=== PATIENT | female | born 1985 | race Caucasian/White ===

== ENCOUNTER 2020-03-27 12:12 | Emergency (ER) | payer OTHER ==
[2020-03-27 12:30] VITALS: O2SAT 98
[2020-03-27 12:35] LABS: Appearance SLIGHTLY CLOUDY (CLEAR); Bacteria FEW /HPF (NEGATIVE); Bilirubin NEGATIVE (NEGATIVE); Blood MODERATE Ery/ul (0-5); Epithelial Cells RARE /HPF (FEW); Glucose NEGATIVE (NEGATIVE); Ketones NEGATIVE (NEGATIVE); Leukocyte Esterase TRACE (NEGATIVE); Mucus SLIGHT /HPF (NEGATIVE); Nitrite NEGATIVE (NEGATIVE); Protein,Urine Dip 100 (Negative); Specific Gravity 1.026 (1.005-1.025); Urobilinogen NEGATIVE mg/dL (0-1)
--- NOTE | 2020-03-27 12:45 | ERPHSYRPT ---
- History of Present Illness Time Seen by Provider: 03/27/20 12:24 Historian: patient Exam Limitations: no limitations Patient Subjective Stated Complaint: pt here for anxiety , she states she has had panic attacks for the last 2 days, and that her b/p has been high. Triage Nursing Assessment: pt alert, anxious, walked in , resp easy, skin w/d/p, Physician History: Patient is a 34-year-old female presents to our ED with complaints of high blood pressure and panic attack. Patient states she has been feeling very anxious over the past 3 days. Patient very concerned regarding her blood pressure. Patient states she has been hearing her blood pressure in her ears. She checked her blood pressure yesterday and it was normal. Patient blood pressure was observed to be 180s at home. Patient became even more panicked and decided to come to the ED for an evaluation. No active chest pain. No shortness of breath. No nausea or vomiting. No diarrhea. No diaphoresis. No fever. No sore throat. Patient states she only feels anxious. Timing/Duration: day(s) Activities at Onset: none Location: other Chest Pain Radiation: no radiation Severity of Pain-Max: none Severity of Pain-Current: none Modifying Factors: Improves With: nothing Associated Symptoms: denies symptoms, No nausea, No vomiting, No palpitations, No abdominal pain, No shortness of breath, No cough, No hurts to breathe, No diaphoresis, No weakness, No syncope, No headache, No dizziness Prior Chest Pain/Cardiac Workup: no prior cardiac workup Aspirin Treatment Today: no aspirin today Allergies/Adverse Reactions: penicillin G Allergy (Intermediate, Verified 03/27/20 12:30) Home Medications: Methadone HCl 10 mg DAILY 03/27/20 [History] Hx Tetanus, Diphtheria Vaccination/Date Given: No Hx Influenza Vaccination/Date Given: No Hx Pneumococcal Vaccination/Date Given: No Immunizations Up to Date: Yes Travel Risk - International Travel Have you traveled outside of the country in past 3 weeks: No Have you or anyone close to you been diagnosed with or: No Do your reside in a community with a known COVID-19 case?: Yes If Yes where:: [place] - Coronavirus Screening Has patient experienced Coronavirus symptoms: No - Review of Systems Constitutional: No Symptoms, No Fever, No Chills Eyes: No Symptoms Ears, Nose, & Throat: No Symptoms Respiratory: No Symptoms, No Cough, No Dyspnea Cardiac: No Symptoms, No Chest Pain, No Edema, No Syncope Abdominal/Gastrointestinal: No Symptoms, No Abdominal Pain, No Nausea, No Vomiting, No Diarrhea Genitourinary Symptoms: No Symptoms, No Dysuria Musculoskeletal: No Symptoms, No Back Pain, No Neck Pain Skin: No Symptoms, No Rash Neurological: No Symptoms, No Dizziness, No Focal Weakness, No Sensory Changes Psychological: No Symptoms Endocrine: No Symptoms Hematologic/Lymphatic: No Symptoms Immunological/Allergic: No Symptoms All Other Systems: Reviewed and Negative - Past Medical History Pertinent Past Medical History: Yes Psycho-Social History: Anxiety, Panic Disorder - Past Surgical History Past Surgical History: No - Social History Smoking Status: Current every day smoker How long have you smoked: YRS Exposure to second hand smoke: No Drug Use: none Patient Lives Alone: No - Female History Hx Last Menstrual Period: now Hx Now: No - Nursing Vital Signs Nursing Vital Signs: Initial Vital Signs Temperature 97.9 F 03/27/20 12:24 Pulse Rate 119 H 03/27/20 12:24 Blood Pressure 189/108 03/27/20 12:24 O2 Sat by Pulse Oximetry 98 03/27/20 12:24 Pain Scale Pain Intensity 0 - Physical Exam General Appearance: no apparent distress, alert, other (Patient sitting up in bed. She appears anxious.) Eye Exam: PERRL/EOMI, eyes nml inspection Ears, Nose, Throat Exam: normal ENT inspection, moist mucous membranes Neck Exam: normal inspection, non-tender, supple, full range of motion Respiratory Exam: normal breath sounds, lungs clear, No respiratory distress Cardiovascular Exam: regular rate/rhythm, normal heart sounds Gastrointestinal/Abdomen Exam: soft, No tenderness, No mass Back Exam: normal inspection, No CVA tenderness, No vertebral tenderness Extremity Exam: normal inspection, normal range of motion Neurologic Exam: alert, oriented x 3, cooperative, normal mood/affect, sensation nml, No motor deficits Skin Exam: normal color, warm, dry SpO2 Interpretation: normal SpO2: 98 O2 Delivery: Room Air - Course Nursing assessment & vital signs reviewed: Yes Ordered Tests: Active Orders 24 hr Category Date Time Status Clean Catch Urine Specimen STAT Care 03/27/20 12:20 Active CULTURE,URINE Stat Lab 03/27/20 12:21 Received UA W/RFX UR CULTURE Stat Lab 03/27/20 12:21 Completed Urine Triage Profile Stat Lab 03/27/20 12:21 Ordered Lab/Rad Data: Laboratory Results 03/27/20 Range/Units 12:21 Urine Color YARIEL (YELLOW) Urine Appearance SLIGHTLY CLOUDY (CLEAR) Urine pH 6.0 (5-6) Ur Specific [place] 1.026 (1.005-1.025) Urine Protein 100 (Negative) Urine Ketones NEGATIVE (NEGATIVE) Urine Blood MODERATE (0-5) Jamir/ul Urine Nitrite NEGATIVE (NEGATIVE) Urine Bilirubin NEGATIVE (NEGATIVE) Urine Urobilinogen NEGATIVE (0-1) mg/dL Ur Leukocyte Esterase TRACE (NEGATIVE) Urine WBC (Auto) 6-10 (0-5) /HPF Urine RBC (Auto) 16-25 (0-2) /HPF U Hyaline Cast (Auto) 6-10 (0-2) /LPF U Epithel Cells (Auto) RARE (FEW) /HPF Urine Bacteria (Auto) FEW (NEGATIVE) /HPF Urine Mucus (Auto) SLIGHT (NEGATIVE) /HPF Urine Culture Reflexed YES (NO) Urine Glucose NEGATIVE (NEGATIVE) mg/dL - Progress Progress: improved Air Movement: good Progress Note: 03/27/20 12:40 Patient reassessed. She is well. Patient presented to our ED because her blood pressure was elevated. Upon reexamination her blood pressure is normalizing. Patient is asymptomatic. Patient states she does not want a work- up because her significant other is in the waiting area. Patient believes that she simply had a panic attack. She is known to have panic attacks and states that her symptoms today was very similar to her usual panic attacks. Patient does not have a primary care doctor currently in requesting referral to a primary physician. Referral information was provided to patient. Patient blood pressure still somewhat elevated. However it is coming down. Patient's heart rate is mildly tachycardic in the 1 teens. Patient advised that because of these abnormalities work-up was indicated. Patient states she feels well and prefers to leave. She will follow-up with her primary care physician. She does not want her significant other waiting for her. Patient is alert and oriented x4. She is appropriate to make independent and informed medical decisions. Patient understands her risks of not undergoing a work-up. Risks include delayed diagnosis, increased risk morbidity, mortality, short and long- term disability, including . Patient understands and accepts the risks. AMA form completed. 03/27/20 12:52 Patient understand that she can return to our ED at any point for further evaluation and treatment of symptomology. Moderate blood on UA. However patient is currently on her menstrual period. Patient provided primary care referral information. 03/27/20 12:54 03/27/20 12:55 Blood Culture(s) Obtained: No Antibiotics given: No Counseled pt/family regarding: lab results, diagnosis, need for follow-up - Departure Departure Disposition: Home, AMA, Extended Care Facility Clinical Impression: Anxiety, High blood pressure, Tachycardia, Marijuana smoker Condition: Stable Critical Care Time: No Referrals: DOCTOR,NO FAMILY [Primary Care Provider] - LETICIA ADHIKARI MD [ACTIVE STAFF] - Additional Instructions: Discharge/Care Plan ROMULO OLVERA was seen on 03/27/20 in the Emergency Room. The patient was counseled regarding Diagnosis,Lab results, Imaging studies, need for follow up and when to return to the Emergency Room. Prescriptions given: Discharge Note I have spoken with the patient and/or caregivers. I have explained the patient' s condition, diagnosis and treatment plan based on the information available to me at this time. I have answered the patient's and/or caregiver's questions and addressed any concerns. The patient and/or caregivers have as good understanding of the patient's diagnosis, condition and treatment plan as can be expected at this point. The vital signs have been stable. The patient's condition is stable and appropriate for discharge from the emergency department. The patient will pursue further outpatient evaluation with the primary care physician or other designated or consulting physician as outlined in the discharge instructions. The patient and/or caregivers are agreeable to this plan of care and follow-up instructions have been explained in detail. The patient and/or caregivers have received these instruction. The patient/and or caregivers are aware that any significant change in condition or worsening of symptoms should prompt an immediate return to this or the closest emergency department or call 911.
[2020-03-27 12:46] LABS: Amphetamine,Urine NEGATIVE (NEGATIVE); Barbiturate,Urine NEGATIVE (NEGATIVE); Benzodiazepine,Urine NEGATIVE (NEGATIVE); Cocaine,Urine NEGATIVE (NEGATIVE); Methadone,Urine POSITIVE (NEGATIVE); Opiate,Urine NEGATIVE (NEGATIVE); PCP,Urine NEGATIVE (NEGATIVE); THC,Urine POSITIVE (NEGATIVE)
[2020-03-27 12:47] VITALS: BP 150/97; PULSE 98
== END 2020-03-27 13:00 | disposition left against medical advice (07) ==
LOC: ED 12:12
DX: F41.9 Anxiety disorder, unspecified (principal); R03.0 Elevated blood-pressure reading, without diagnosis of hypertension; R00.0 Tachycardia, unspecified; F12.90 Cannabis use, unspecified, uncomplicated
CPT/HCPCS: 80307; 81001; 87077; 87086; 99283

== ENCOUNTER 2020-03-27 19:52 | Emergency (ER) | payer OTHER ==
[2020-03-27 20:30] LABS: Absolute Neutrophil Ct (ANC) 7.62 (1.4-6.9); BASOPHIL % 0.2 % (0.0-0.4); Basophil (Absolute #) 0.02 (0-0.4); Eosinophil % 1.5 % (0.00-5.0); Eosinophil (Absolute #) 0.17 (0-0.5); Hematocrit 39.1 % (35-47); Hemoglobin 13.3 gm/dl (12.0-16.0); Lymphocyte (Absolute #) 2.19 (1.0-4.6); Lymphocytes % 19.7 % (24.0-44.0); Mean Cell Volume 96.1 fl (78-100); Mean Corpuscular Hemoglobin 32.7 pg (26-32); Mean Platelet Volume 11.1 fl (7.5-11.0); Monocyte (Absolute #) 1.13 (0.0-1.3); Monocytes % 10.2 % (0.0-12.0); Neutrophil % 68.4 % (36.0-66.0); Platelet Count 271 K/mm3 (150-450); Red Blood Count 4.07 M/mm3 (4.1-5.4); Red Cell Distribution Width 12.1 % (11.5-14.0); White Blood Count 11.1 K/mm3 (4.0-10.5)
[2020-03-27] MEDS ORDERED: BENADRYL 50 MG/ML IV ONE (20:39)
[2020-03-27] MEDS ORDERED: BENADRYL 50 MG/ML ONE (20:44)
[2020-03-27 20:55] LABS: ALBUMIN 4.6 g/dL (3.5-5.0); ALKALINE PHOSPHATASE 78 U/L (38-126); ANION GAP 15.3 MEQ/L (5-15); BLOOD UREA NITROGEN 7 mg/dL (7-17); CHLORIDE 102 mmol/L (98-107); Calcium 10.4 mg/dL (8.4-10.2); Carbon Dioxide 26 mmol/L (22-30); Creatinine 1 0.46 mg/dL (0.52-1.04); Glucose 114 mg/dL (74-106); NT PRO BNP 443 pg/mL (0-450); Potassium 3.5 mmol/L (3.5-5.1); SGOT/AST 23 U/L (14-36); SGPT/ALT 18 U/L (0-35); SODIUM 140 mmol/L (137-145); Total Protein 8.1 g/dL (6.3-8.2)
--- NOTE | 2020-03-27 21:47 | ERPHSYRPT ---
- History of Present Illness Time Seen by Provider: 03/27/20 20:20 Patient Subjective Stated Complaint: pt states that she has been checking her blood pressure all day, pt states that she is unable to get her blood pressure to go down, pt states that she is nervous and anxious about this virus, pt states that she took ibuprofen at 1100, CBD oil and her methadone today, pt states highest blood pressure was 172/107 Triage Nursing Assessment: pt ambulated into the er, pt is axo x4, pt is nervous and anxious, pt is restless, hypertensive 191/116, second b/p 154/106, tachycardic, clear heart tones, strong pulses in all extremities, wheezing present in all lobes, active bowel sounds in all quads Physician History: Patient is a 34-year-old female presents to our ED with complaints of elevated blood pressure. Patient was in our ED for the same earlier in the day. While in our ED patient's blood pressure improved patient felt well and left AMA. Blood pressure and heart rate were not at baseline we advise a work-up and patient declined because her significant other was waiting in the waiting room. Patient is here for the same. Patient states that she checked her blood pressure at home and found it to be elevated. Patient became very concerned. Patient has a history of anxiety. Patient states elevated blood pressure worsens her anxiety which concerned likely worsens her blood pressure. Patient believes her blood pressure is too high and decided to come to our ED for further evaluation. No chest pain. No nausea or vomiting. No shortness of breath. Patient appears very anxious. Symptoms are mild in intensity. Patient voices no other complaints at this time. Timing/Duration: today Severity: moderate Modifying Factors: Improves With: other Associated Symptoms: denies symptoms, No nausea, No vomiting, No abdominal pain , No shortness of breath, No heartburn, No diaphoresis, No cough, No chills, No chest pain, No fever Allergies/Adverse Reactions: penicillin G Allergy (Intermediate, Verified 03/27/20 20:12) Home Medications: Methadone HCl 130 mg PO DAILY 03/27/20 [History] Hx Tetanus, Diphtheria Vaccination/Date Given: No Hx Influenza Vaccination/Date Given: No Hx Pneumococcal Vaccination/Date Given: No Travel Risk - International Travel Have you traveled outside of the country in past 3 weeks: No Have you or anyone close to you been diagnosed with or: No Do your reside in a community with a known COVID-19 case?: Yes If Yes where:: [facility] - Coronavirus Screening Has patient experienced Coronavirus symptoms: No - Review of Systems Constitutional: No Fever, No Chills Eyes: No Symptoms Ears, Nose, & Throat: No Symptoms Respiratory: No Symptoms, No Cough, No Dyspnea Cardiac: No Symptoms, No Chest Pain, No Edema, No Syncope Abdominal/Gastrointestinal: No Symptoms, No Abdominal Pain, No Nausea, No Vomiting, No Diarrhea Genitourinary Symptoms: No Symptoms, No Dysuria Musculoskeletal: No Symptoms, No Back Pain, No Neck Pain Skin: No Symptoms, No Rash Neurological: No Symptoms, No Dizziness, No Focal Weakness, No Sensory Changes Psychological: No Symptoms Endocrine: No Symptoms Hematologic/Lymphatic: No Symptoms All Other Systems: Reviewed and Negative - Past Medical History Pertinent Past Medical History: Yes Psycho-Social History: Anxiety, Depression, Panic Disorder - Past Surgical History Past Surgical History: Yes Musculoskeletal: Orthopedic Surgery - Social History Smoking Status: Current every day smoker How long have you smoked: YRS Exposure to second hand smoke: Yes Drug Use: none Patient Lives Alone: No - Female History Hx Now: No - Nursing Vital Signs Nursing Vital Signs: Initial Vital Signs Temperature 97.6 F 03/27/20 19:59 Pulse Rate 125 H 03/27/20 19:59 Blood Pressure 191/116 03/27/20 19:59 O2 Sat by Pulse Oximetry 98 03/27/20 19:59 Pain Scale Pain Intensity 3 - Physical Exam General Appearance: no apparent distress, alert, anxiety Eye Exam: PERRL/EOMI, eyes nml inspection Ears, Nose, Throat Exam: normal ENT inspection, TMs normal, pharynx normal, moist mucous membranes Neck Exam: normal inspection, non-tender, supple, full range of motion Respiratory Exam: normal breath sounds, lungs clear, No respiratory distress Cardiovascular Exam: regular rate/rhythm, normal heart sounds, normal peripheral pulses Gastrointestinal/Abdomen Exam: soft, normal bowel sounds, No tenderness, No mass Back Exam: normal inspection, normal range of motion, No CVA tenderness, No vertebral tenderness Extremity Exam: normal inspection, normal range of motion, pelvis stable Neurologic Exam: alert, oriented x 3, cooperative, normal mood/affect, nml cerebellar function, nml station & gait, sensation nml, No motor deficits Skin Exam: normal color, warm, dry, No rash Lymphatic Exam: No adenopathy SpO2 Interpretation: normal SpO2: 100 O2 Delivery: Room Air - Course EKG Interpreted by Me: RATE, Sinus Rhythm, NORMAL AXIS, NORMAL INTERVALS - Radiology Exams Chest X-ray Interpretation: Teleradiologist Report (X-ray reveals subtle patchy right mid to lower lung and left mid lung infiltrates. Small right pleural effusion.) Ordered Tests: Active Orders 24 hr Category Date Time Status Retail Selling Specialist STAT Care 03/27/20 20:04 Active EKG-ER Only STAT Care 03/27/20 20:04 Active IV Insertion STAT Care 03/27/20 20:04 Active Isolation, Initiate & Maintain Q4H Care 03/27/20 20:12 Active Pulse Oximetry (ED) STAT Care 03/27/20 20:04 Active CHEST 1 VIEW (PORTABLE) Stat Exams 03/27/20 20:04 Taken CBC W DIFF Stat Lab 03/27/20 20:26 Completed CMP Stat Lab 03/27/20 20:26 Completed D-DIMER QUANTITATIVE Stat Lab 03/27/20 20:26 Completed NT PRO BNP Stat Lab 03/27/20 20:26 Completed TROPONIN Q3H Lab 03/27/20 20:26 Completed TROPONIN Q3H Lab 03/27/20 21:53 Completed TROPONIN Q3H Lab 03/28/20 02:15 Ordered TROPONIN Q3H Lab 03/28/20 05:15 Ordered TROPONIN Q3H Lab 03/28/20 08:15 Ordered Medication Summary Discontinued Medications Generic Name Dose Route Start Last Admin Trade Name Freq PRN Reason Stop Dose Admin Diphenhydramine HCl 25 mg 03/27/20 20:39 03/27/20 20:45 Benadryl 50 Mg/Ml IV 03/27/20 20:40 25 mg STAT ONE Administration Diphenhydramine HCl Confirm 03/27/20 20:44 Benadryl 50 Mg/Ml Administered 03/27/20 20:45 Dose 50 mg .ROUTE .[facility] ONE Lab/Rad Data: Laboratory Result Diagrams 03/27/20 20:26 03/27/20 20:26 Laboratory Results 03/27/20 03/27/20 03/27/20 Range/Units 21:53 20:26 20:26 WBC (4.0-10.5) K/mm3 RBC (4.1-5.4) M/mm3 Hgb (12.0-16.0) gm/dl Hct (35-47) % MCV (78-100) fl MCH (26-32) pg MCHC (32-36) g/dl RDW (11.5-14.0) % Plt Count (150-450) K/mm3 MPV (7.5-11.0) fl Gran % (36.0-66.0) % Eos # (Auto) (0-0.5) Absolute Lymphs (auto) (1.0-4.6) Absolute Monos (auto) (0.0-1.3) Lymphocytes % (24.0-44.0) % Monocytes % (0.0-12.0) % Eosinophils % (0.00-5.0) % Basophils % (0.0-0.4) % Absolute Granulocytes (1.4-6.9) Basophils # (0-0.4) D-Dimer 244 (215-500) ng/mL Sodium (137-145) mmol/L Potassium (3.5-5.1) mmol/L Chloride (98-107) mmol/L Carbon Dioxide (22-30) mmol/L Anion Gap (5-15) MEQ/L BUN (7-17) mg/dL Creatinine (0.52-1.04) mg/dL Estimated GFR ML/MIN Glucose (74-106) mg/dL Calcium (8.4-10.2) mg/dL Total Bilirubin (0.2-1.3) mg/dL AST (14-36) U/L ALT (0-35) U/L Alkaline Phosphatase (38-126) U/L Troponin I < 0.012 < 0.012 (0.000-0.034) ng/mL NT-Pro-B Natriuret Pep (0-450) pg/mL Serum Total Protein (6.3-8.2) g/dL Albumin (3.5-5.0) g/dL 03/27/20 03/27/20 Range/Units 20:26 20:26 WBC 11.1 H (4.0-10.5) K/mm3 RBC 4.07 L (4.1-5.4) M/mm3 Hgb 13.3 (12.0-16.0) gm/dl Hct 39.1 (35-47) % MCV 96.1 (78-100) fl MCH 32.7 H (26-32) pg MCHC 34.0 (32-36) g/dl RDW 12.1 (11.5-14.0) % Plt Count 271 (150-450) K/mm3 MPV 11.1 H (7.5-11.0) fl Gran % 68.4 H (36.0-66.0) % Eos # (Auto) 0.17 (0-0.5) Absolute Lymphs (auto) 2.19 (1.0-4.6) Absolute Monos (auto) 1.13 (0.0-1.3) Lymphocytes % 19.7 L (24.0-44.0) % Monocytes % 10.2 (0.0-12.0) % Eosinophils % 1.5 (0.00-5.0) % Basophils % 0.2 (0.0-0.4) % Absolute Granulocytes 7.62 H (1.4-6.9) Basophils # 0.02 (0-0.4) D-Dimer (215-500) ng/mL Sodium 140 (137-145) mmol/L Potassium 3.5 (3.5-5.1) mmol/L Chloride 102 (98-107) mmol/L Carbon Dioxide 26 (22-30) mmol/L Anion Gap 15.3 H (5-15) MEQ/L BUN 7 (7-17) mg/dL Creatinine 0.46 L (0.52-1.04) mg/dL Estimated GFR > 60.0 ML/MIN Glucose 114 H (74-106) mg/dL Calcium 10.4 H (8.4-10.2) mg/dL Total Bilirubin 0.30 (0.2-1.3) mg/dL AST 23 (14-36) U/L ALT 18 (0-35) U/L Alkaline Phosphatase 78 (38-126) U/L Troponin I (0.000-0.034) ng/mL NT-Pro-B Natriuret Pep 443 (0-450) pg/mL Serum Total Protein 8.1 (6.3-8.2) g/dL Albumin 4.6 (3.5-5.0) g/dL - Progress Progress: improved Progress Note: 03/27/20 21:49 Patient reassessed. She is well. Vitals stable. Blood pressure mildly elevated. Patient will have a follow-up with her primary care doctor for recheck of her blood pressure. There is a possibility she may require antihypertensive medication. Chest x-ray shows possible pneumonia. Will treat patient with azithromycin. Troponin negative x2. Patient denies chest pain or shortness of breath. Patient will be discharged home. Counseled pt/family regarding: lab results, diagnosis, need for follow-up, rad results - Departure Departure Disposition: Home Clinical Impression: Pneumonia, Hypertension, Anxiety Condition: Stable Critical Care Time: No Referrals: DOCTOR,NO FAMILY [Primary Care Provider] - Instructions: Pneumonia, Adult (DC) Additional Instructions: Discharge/Care Plan MAYROMULO PIERRE was seen on 03/27/20 in the Emergency Room. The patient was counseled regarding Diagnosis,Lab results, Imaging studies, need for follow up and when to return to the Emergency Room. Prescriptions given: Discharge Note I have spoken with the patient and/or caregivers. I have explained the patient' s condition, diagnosis and treatment plan based on the information available to me at this time. I have answered the patient's and/or caregiver's questions and addressed any concerns. The patient and/or caregivers have as good understanding of the patient's diagnosis, condition and treatment plan as can be expected at this point. The vital signs have been stable. The patient's condition is stable and appropriate for discharge from the emergency department. The patient will pursue further outpatient evaluation with the primary care physician or other designated or consulting physician as outlined in the discharge instructions. The patient and/or caregivers are agreeable to this plan of care and follow-up instructions have been explained in detail. The patient and/or caregivers have received these instruction. The patient/and or caregivers are aware that any significant change in condition or worsening of symptoms should prompt an immediate return to this or the closest emergency department or call 911. Prescriptions: Doxycycline Hyclate 100 mg [Vibramycin 100 MG] 100 mg PO BID #14 tab
[2020-03-27 22:39] VITALS: BP 141/103; PULSE 92; O2SAT 98
--- NOTE | 2020-03-28 08:21 | XRAY ---
Indication: Chest pain and tightness. High blood pressure. Comparison: None Portable chest demonstrates subtle right mid to lower lung and lesser degree left mid lung patchy airspace opacities with tiny right effusion. Remaining heart and lungs unremarkable. Bony thorax intact with old right 5 rib fracture and very minimal scoliosis.
== END 2020-03-27 22:47 | disposition home or self-care (01) ==
LOC: ED 19:52
DX: J18.9 Pneumonia, unspecified organism (principal); I10 Essential (primary) hypertension; F41.9 Anxiety disorder, unspecified; Z72.0 Tobacco use
CPT/HCPCS: 36000; 36415; 71045; 80053; 83880; 84484; 85025; 85379; 93005; 93041; 94760; 96374; 99284; J1200

== ENCOUNTER 2020-03-31 11:42 | Emergency (ER) | payer OTHER ==
[2020-03-31 12:25] VITALS: O2SAT 98
[2020-03-31 13:04] LABS: Hematocrit 43.1 % (35-47); Hemoglobin 14.8 gm/dl (12.0-16.0); Mean Cell Volume 94.3 fl (78-100); Mean Corpuscular Hemoglobin 32.4 pg (26-32); Mean Corpuscular Hgb Concent. 34.3 g/dl (32-36); Mean Platelet Volume 10.9 fl (7.5-11.0); Platelet Count 389 K/mm3 (150-450); Red Blood Count 4.57 M/mm3 (4.1-5.4); Red Cell Distribution Width 11.7 % (11.5-14.0); White Blood Count 17.4 K/mm3 (4.0-10.5)
[2020-03-31 13:11] LABS: Appearance SLIGHTLY CLOUDY (CLEAR); Bilirubin NEGATIVE (NEGATIVE); Blood NEGATIVE Ery/ul (0-5); Glucose NEGATIVE (NEGATIVE); Ketones NEGATIVE (NEGATIVE); Leukocyte Esterase TRACE (NEGATIVE); Mucus SLIGHT /HPF (NEGATIVE); Nitrite NEGATIVE (NEGATIVE); Protein,Urine Dip 30 (Negative); Specific Gravity 1.017 (1.005-1.025); Urobilinogen NEGATIVE mg/dL (0-1); WBC 0-2 /HPF (0-5)
[2020-03-31 13:13] LABS: ALBUMIN 4.9 g/dL (3.5-5.0); ALKALINE PHOSPHATASE 78 U/L (38-126); ANION GAP 14.2 MEQ/L (5-15); BLOOD UREA NITROGEN 15 mg/dL (7-17); CHLORIDE 100 mmol/L (98-107); Calcium 10.3 mg/dL (8.4-10.2); Carbon Dioxide 28 mmol/L (22-30); Creatinine 1 0.66 mg/dL (0.52-1.04); Glucose 115 mg/dL (74-106); Potassium 3.9 mmol/L (3.5-5.1); SGOT/AST 30 U/L (14-36); SGPT/ALT 30 U/L (0-35); SODIUM 138 mmol/L (137-145); Total Protein 8.6 g/dL (6.3-8.2)
[2020-03-31 13:24] LABS: Amphetamine,Urine NEGATIVE (NEGATIVE); Barbiturate,Urine NEGATIVE (NEGATIVE); Benzodiazepine,Urine NEGATIVE (NEGATIVE); Cocaine,Urine NEGATIVE (NEGATIVE); Methadone,Urine POSITIVE (NEGATIVE); Opiate,Urine NEGATIVE (NEGATIVE); PCP,Urine NEGATIVE (NEGATIVE); THC,Urine NEGATIVE (NEGATIVE)
[2020-03-31 13:33] VITALS: BP 133/97; PULSE 110
--- NOTE | 2020-03-31 13:40 | ERPHSYRPT ---
- History of Present Illness Time Seen by Provider: 03/31/20 11:50 Source: patient Exam Limitations: no limitations Patient Subjective Stated Complaint: "Since last wednesday, it feels like when I swallow fluid is trying to go to my lungs or splash somewhere else." Triage Nursing Assessment: Pt presented alert et oriented answering questions appropriately. Pt ambulating without complications. Pt reported a feeling of a hole "or something" in her throat ongoing over the past week. Denied chest pain/ respiratory distress. Pt denied nausea/vomiting/diarrhea. Pupils 3mm reactive. Oral mucosa pink/moist. oropharynx without erryhtma/edema/drainage. Pt denied ear pain. Bilateral tympanic membranes intact without signs of effusion. Neck supple without JVD. Bronchial lung sound clear without signs of stridor. Symmetrical chest expansion. Lungs clear with adeuquate airflow throughout all lugn andino. Abdomen soft non-tender without palpable organomegaly. No noted dependent edema. Bilateral radial pulses equal. Skin p/w/d et intact. Physician History: pain with swallowing X 5 days. tx for pneumonia, sore throat. On Doxycycline no F,C,S. Feels like she is choking Timing/Duration: day(s) (5), gradual onset Activities at Onset: none Severity of Dyspnea-Max: mild Severity of Dyspnea-Current: mild Possible Cause: no prior episodes Modifying Factors: Improves With: other (swallowing) Associated Symptoms: chest pain/discomfort Allergies/Adverse Reactions: penicillin G Allergy (Intermediate, Verified 03/27/20 20:12) Home Medications: Methadone HCl 130 mg PO DAILY 03/27/20 [History] Hx Tetanus, Diphtheria Vaccination/Date Given: No Hx Influenza Vaccination/Date Given: No Hx Pneumococcal Vaccination/Date Given: No Immunizations Up to Date: Yes Travel Risk - International Travel Have you traveled outside of the country in past 3 weeks: No Have you or anyone close to you been diagnosed with or: No Do your reside in a community with a known COVID-19 case?: Yes If Yes where:: [place] - Coronavirus Screening Has patient experienced Coronavirus symptoms: No - Review of Systems Constitutional: No Fever, No Chills Eyes: No Symptoms Ears, Nose, & Throat: Throat Pain Respiratory: Cough, No Dyspnea Cardiac: No Chest Pain, No Edema, No Syncope Abdominal/Gastrointestinal: No Abdominal Pain, No Nausea, No Vomiting, No Diarrhea Genitourinary Symptoms: No Dysuria Musculoskeletal: No Back Pain, No Neck Pain Skin: No Rash Neurological: No Dizziness, No Focal Weakness, No Sensory Changes Psychological: No Symptoms Endocrine: No Symptoms All Other Systems: Reviewed and Negative - Past Medical History Pertinent Past Medical History: Yes Neurological History: No Pertinent History ENT History: No Pertinent History Cardiac History: No Pertinent History Respiratory History: No Pertinent History Endocrine Medical History: No Pertinent History Musculoskeletal History: No Pertinent History GI Medical History: No Pertinent History History: No Pertinent History Psycho-Social History: Anxiety, Depression, Panic Disorder Female Reproductive Disorders: No Pertinent History - Past Surgical History Past Surgical History: Yes Musculoskeletal: Orthopedic Surgery Other Surgical History: Foot surgery - Social History Smoking Status: Current every day smoker How long have you smoked: YRS Exposure to second hand smoke: Yes Drug Use: none Patient Lives Alone: No - Female History Hx Last Menstrual Period: 03/24/2020 Hx Now: No - Nursing Vital Signs Nursing Vital Signs: Initial Vital Signs Temperature 98 F 03/31/20 11:42 Pulse Rate 133 H 03/31/20 11:42 Respiratory Rate 03/31/20 11:42 Blood Pressure 188/91 03/31/20 11:42 O2 Sat by Pulse Oximetry 98 03/31/20 11:42 Pain Scale Pain Intensity 4 - Physical Exam General Appearance: mild distress, alert Eye Exam: PERRL/EOMI Neck Exam: normal inspection, supple Cardiovascular/Chest Exam: normal heart sounds, regular rate/rhythm Abdominal/Gastrointestinal Exam: soft, No tenderness, No distention, No mass Extremity Exam: non-tender, normal range of motion, normal inspection, no calf tenderness, no pedal edema Neurologic Exam: alert, oriented x 3, cooperative, basket grader II-XII nml as tested, sensation nml, No motor deficits Skin Exam: normal color, warm, No dry Lymphatic Exam: No adenopathy SpO2 Interpretation: normal SpO2: 98 O2 Delivery: Room Air - Course Nursing assessment & vital signs reviewed: Yes Ordered Tests: Active Orders 24 hr Category Date Time Status Clean Catch Urine Specimen STAT Care 03/31/20 12:25 Active CHEST 2 VIEWS (PA AND LAT) Stat Exams 03/31/20 12:31 Taken NECK SOFT TISSUE Stat Exams 03/31/20 12:31 Taken CBC W DIFF Stat Lab 05/10/20 12:45 Completed CMP Stat Lab 03/31/20 12:45 Completed Lactic Acid Stat Lab 03/31/20 12:24 Completed Manual Differential NC Stat Lab 03/31/20 12:45 Completed UA W/RFX UR CULTURE Stat Lab 03/31/20 12:24 Completed Urine Triage Profile Stat Lab 03/31/20 12:45 Completed Lab/Rad Data: Laboratory Result Diagrams 03/31/20 12:45 03/31/20 12:45 Laboratory Results 03/31/20 03/31/20 03/31/20 Range/Units 12:45 12:45 12:45 WBC (4.0-10.5) K/mm3 RBC (4.1-5.4) M/mm3 Hgb (12.0-16.0) gm/dl Hct (35-47) % MCV (78-100) fl MCH (26-32) pg MCHC (32-36) g/dl RDW (11.5-14.0) % Plt Count (150-450) K/mm3 MPV (7.5-11.0) fl Sodium 138 (137-145) mmol/L Potassium 3.9 (3.5-5.1) mmol/L Chloride 100 (98-107) mmol/L Carbon Dioxide 28 (22-30) mmol/L Anion Gap 14.2 (5-15) MEQ/L BUN 15 (7-17) mg/dL Creatinine 0.66 (0.52-1.04) mg/dL Estimated GFR > 60.0 ML/MIN Glucose 115 H (74-106) mg/dL Lactic Acid (0.4-2.0) Calcium 10.3 H (8.4-10.2) mg/dL Total Bilirubin 0.50 (0.2-1.3) mg/dL AST 30 (14-36) U/L ALT 30 (0-35) U/L Alkaline Phosphatase 78 (38-126) U/L Serum Total Protein 8.6 H (6.3-8.2) g/dL Albumin 4.9 (3.5-5.0) g/dL Urine Color (YELLOW) Urine Appearance (CLEAR) Urine pH (5-6) Ur Specific [place] (1.005-1.025) Urine Protein (Negative) Urine Ketones (NEGATIVE) Urine Blood (0-5) Jamir/ul Urine Nitrite (NEGATIVE) Urine Bilirubin (NEGATIVE) Urine Urobilinogen (0-1) mg/dL Ur Leukocyte Esterase (NEGATIVE) Urine WBC (Auto) (0-5) /HPF Urine RBC (Auto) (0-2) /HPF U Epithel Cells (Auto) (FEW) /HPF Urine Bacteria (Auto) (NEGATIVE) /HPF Other Casts (Auto) (NEGATIVE) /LPF Urine Mucus (Auto) (NEGATIVE) /HPF Urine Culture Reflexed (NO) Urine Glucose (NEGATIVE) mg/dL Urine Opiates Level NEGATIVE (NEGATIVE) Ur Methadone POSITIVE (NEGATIVE) Urine Barbiturates NEGATIVE (NEGATIVE) Ur Phencyclidine (PCP) NEGATIVE (NEGATIVE) Urine Amphetamine NEGATIVE (NEGATIVE) U Benzodiazepine Level NEGATIVE (NEGATIVE) Urine Cocaine NEGATIVE (NEGATIVE) Urine Marijuana (THC) NEGATIVE (NEGATIVE) Group A Strep Antibody NOT DETECTED (NEGATIVE) 03/31/20 03/31/20 03/31/20 Range/Units 12:45 12:24 12:24 WBC 17.4 H (4.0-10.5) K/mm3 RBC 4.57 (4.1-5.4) M/mm3 Hgb 14.8 (12.0-16.0) gm/dl Hct 43.1 (35-47) % MCV 94.3 (78-100) fl MCH 32.4 H (26-32) pg MCHC 34.3 (32-36) g/dl RDW 11.7 (11.5-14.0) % Plt Count 389 (150-450) K/mm3 MPV 10.9 (7.5-11.0) fl Sodium (137-145) mmol/L Potassium (3.5-5.1) mmol/L Chloride (98-107) mmol/L Carbon Dioxide (22-30) mmol/L Anion Gap (5-15) MEQ/L BUN (7-17) mg/dL Creatinine (0.52-1.04) mg/dL Estimated GFR ML/MIN Glucose (74-106) mg/dL Lactic Acid 1.3 (0.4-2.0) Calcium (8.4-10.2) mg/dL Total Bilirubin (0.2-1.3) mg/dL AST (14-36) U/L ALT (0-35) U/L Alkaline Phosphatase (38-126) U/L Serum Total Protein (6.3-8.2) g/dL Albumin (3.5-5.0) g/dL Urine Color YELLOW (YELLOW) Urine Appearance SLIGHTLY CLOUDY (CLEAR) Urine pH 7.0 (5-6) Ur Specific [place] 1.017 (1.005-1.025) Urine Protein 30 (Negative) Urine Ketones NEGATIVE (NEGATIVE) Urine Blood NEGATIVE (0-5) Jamir/ul Urine Nitrite NEGATIVE (NEGATIVE) Urine Bilirubin NEGATIVE (NEGATIVE) Urine Urobilinogen NEGATIVE (0-1) mg/dL Ur Leukocyte Esterase TRACE (NEGATIVE) Urine WBC (Auto) 0-2 (0-5) /HPF Urine RBC (Auto) 6-10 (0-2) /HPF U Epithel Cells (Auto) NONE (FEW) /HPF Urine Bacteria (Auto) NONE (NEGATIVE) /HPF Other Casts (Auto) NEGATIVE (NEGATIVE) /LPF Urine Mucus (Auto) SLIGHT (NEGATIVE) /HPF Urine Culture Reflexed NO (NO) Urine Glucose NEGATIVE (NEGATIVE) mg/dL Urine Opiates Level (NEGATIVE) Ur Methadone (NEGATIVE) Urine Barbiturates (NEGATIVE) Ur Phencyclidine (PCP) (NEGATIVE) Urine Amphetamine (NEGATIVE) U Benzodiazepine Level (NEGATIVE) Urine Cocaine (NEGATIVE) Urine Marijuana (THC) (NEGATIVE) Group A Strep Antibody (NEGATIVE) - Progress Progress: unchanged Air Movement: good Blood Culture(s) Obtained: No Antibiotics given: Yes - Departure Departure Disposition: Home Clinical Impression: Esophagitis Condition: Stable Critical Care Time: No Referrals: DOCTOR,NO FAMILY [Primary Care Provider] - Instructions: Thrush (DC), Acid Reflux and GERD in Adults (DC) Prescriptions: Azithromycin [Zithromax] 250 mg PO DAILY 5 Days #6 tablet Clotrimazole [Mycelex] 10 mg MM QID 5 Days #20 est[place]
[2020-03-31 16:32] LABS: BAND 3 % (0.0-2.0); Basophil 1 % (0.0-1.0); Lymphocytes 19 % (24-44); Monocyte 4 % (0.0-12.0); Neutrophils 73 % (36.0-66.0); Total Cells Counted 100
[2020-03-31 16:33] LABS: Platelet Estimate NORMAL (NORMAL); Toxic Granulation 2+
--- NOTE | 2020-03-31 19:18 | XRAY ---
Indication: Dysphasia. Comparison: None AP/lateral soft tissue neck demonstrates patent supra/infra glottic airway and normal epiglottis. Cervical spine intact with mild/moderate multilevel degenerative changes. Incidental poor dentition. Esophagram may yield further information if clinically warranted.
--- NOTE | 2020-03-31 19:20 | XRAY ---
Indication: Dysphasia. Comparison: March 27, 2020. Portable chest remains hyperinflated and is now clear. Heart and mediastinal structures within normal limits. No new/acute findings. Esophagram may yield further information if clinically warranted.
== END 2020-03-31 13:47 | disposition home or self-care (01) ==
LOC: ED 11:42
DX: K20.9 Esophagitis, unspecified (principal)
CPT/HCPCS: 36415; 70360; 71046; 80053; 80307; 81001; 83605; 85025; 87651; 99284

== ENCOUNTER 2020-09-20 14:21 | Emergency (ER) | payer OTHER ==
[2020-09-20] MEDS ORDERED: Sodium Chloride 0.9% 1000 ML 1,000 ML IV STA (15:18)
[2020-09-20 15:39] LABS: Appearance SLIGHTLY CLOUDY (CLEAR); Bacteria RARE /HPF (NEGATIVE); Bilirubin NEGATIVE (NEGATIVE); Blood SMALL Ery/ul (0-5); Epithelial Cells RARE /HPF (FEW); Glucose NEGATIVE (NEGATIVE); Ketones NEGATIVE (NEGATIVE); Leukocyte Esterase SMALL (NEGATIVE); Nitrite NEGATIVE (NEGATIVE); Protein,Urine Dip NEGATIVE (Negative); Specific Gravity 1.015 (1.005-1.025); Urobilinogen NEGATIVE mg/dL (0-1)
--- NOTE | 2020-09-20 15:40 | ERPHSYRPT ---
- History of Present Illness Time Seen by Provider: 09/20/20 14:50 Source: patient Exam Limitations: no limitations Patient Subjective Stated Complaint: anxiety - family members have heart issues, pt worried about her heart. no cardiac hx Triage Nursing Assessment: pt to ED c/o anxiety r/t some pain in lungs. pt states her family has cardiac hx and she worries that she also will have cardiac issues. only pmhx anxiety/depression. no cardiac hx reported. rates 5/10 pain in "lung and ribs area." heart sounds clear, lungs clear and equal bialterally. Physician History: This is a 35-year-old female who has significant anxiety issues. She states that she started having cough and congestion yesterday. She is concerned about having a heart issue and also possible Covid 19. She has no known exposures to any individual with COVID-19 positive diagnosis. Patient has no significant chest pain. She has only mild shortness of breath symptoms. She has no myalgias or arthralgias. She has no nausea vomiting or diarrhea. Patient states that she is not under any new stressors. she has no abdominal pain Timing/Duration: yesterday Cough Quality/Degree: mild, dry cough Possible Cause: no prior episodes Modifying Factors: Improves With: coughing Associated Symptoms: cough, shortness of breath (Mild), No chest pain/soreness Allergies/Adverse Reactions: penicillin G Allergy (Intermediate, Verified 09/20/20 14:50) Home Medications: Methadone HCl 130 mg PO DAILY 03/27/20 [History] Hydroxyzine HCl 25 mg [Atarax 25 mg] 25 mg PO DAILY 09/20/20 [History] Omeprazole 20 mg PO DAILY 09/20/20 [History] PARoxetine HCL [Paroxetine HCl] 40 mg PO DAILY 09/20/20 [History] Hx Tetanus, Diphtheria Vaccination/Date Given: No Hx Influenza Vaccination/Date Given: No Hx Pneumococcal Vaccination/Date Given: No Travel Risk - International Travel Have you traveled outside of the country in past 3 weeks: No - Coronavirus Screening Are you exhibiting any of the following symptoms?: Yes Symptoms: Cough: New Onset Close contact with a COVID-19 positive Pt in past 14-21 Days: No - Review of Systems Constitutional: No Symptoms Eyes: No Symptoms Ears, Nose, & Throat: No Symptoms Respiratory: Cough Cardiac: No Symptoms Abdominal/Gastrointestinal: No Symptoms Genitourinary Symptoms: No Symptoms Musculoskeletal: No Symptoms Skin: No Symptoms Neurological: No Symptoms Psychological: No Symptoms Endocrine: No Symptoms Hematologic/Lymphatic: No Symptoms Immunological/Allergic: No Symptoms All Other Systems: Reviewed and Negative - Past Medical History Pertinent Past Medical History: Yes Neurological History: No Pertinent History ENT History: No Pertinent History Cardiac History: No Pertinent History Respiratory History: No Pertinent History Endocrine Medical History: No Pertinent History Musculoskeletal History: No Pertinent History GI Medical History: No Pertinent History History: No Pertinent History Psycho-Social History: Anxiety, Depression, Panic Disorder Female Reproductive Disorders: No Pertinent History - Past Surgical History Past Surgical History: Yes Musculoskeletal: Orthopedic Surgery Other Surgical History: Foot surgery - Social History Smoking Status: Current every day smoker How long have you smoked: YRS Exposure to second hand smoke: Yes Drug Use: none Patient Lives Alone: No - Female History Hx Now: No - Nursing Vital Signs Nursing Vital Signs: Initial Vital Signs Temperature 98.1 F 09/20/20 14:35 Pulse Rate 94 H 09/20/20 14:35 Respiratory Rate 18 09/20/20 14:35 Blood Pressure 143/93 09/20/20 14:35 O2 Sat by Pulse Oximetry 97 09/20/20 14:35 Pain Scale Pain Intensity 8 - Physical Exam General Appearance: no apparent distress, alert, anxiety Eye Exam: PERRL/EOMI, eyes nml inspection Ears, Nose, Throat Exam: normal ENT inspection, moist mucous membranes Neck Exam: normal inspection, non-tender, supple, full range of motion Respiratory Exam: normal breath sounds, lungs clear, airway intact, No chest tenderness, No respiratory distress Cardiovascular Exam: regular rate/rhythm, normal heart sounds, normal peripheral pulses Gastrointestinal/Abdomen Exam: soft, normal bowel sounds, No tenderness Pelvic Exam: not done Rectal Exam: not done Back Exam: normal inspection, normal range of motion, No CVA tenderness, No vertebral tenderness Extremity Exam: normal inspection, normal range of motion, pelvis stable Neurologic Exam: alert, oriented x 3, cooperative, head of mathematics II-XII nml as tested, normal mood/affect, nml cerebellar function, nml station & gait, sensation nml Skin Exam: normal color, warm, dry Lymphatic Exam: No adenopathy SpO2 Interpretation: normal SpO2: 97 O2 Delivery: Room Air - Course Nursing assessment & vital signs reviewed: Yes Ordered Tests: Active Orders 24 hr Category Date Time Status EKG-ER Only STAT Care 09/20/20 15:16 Active Pulse Oximetry (ED) STAT Care 09/20/20 15:16 Active CHEST 1 VIEW (PORTABLE) Stat Exams 09/20/20 15:16 Completed CBC W DIFF Stat Lab 09/20/20 15:16 Completed CMP Stat Lab 09/20/20 16:00 Completed CULTURE,URINE Stat Lab 09/20/20 15:21 Received [place] Screen Stat Lab 09/20/20 16:10 Completed TROPONIN Q3H Lab 09/20/20 15:30 Completed TROPONIN Q3H Lab 09/20/20 18:30 Ordered TROPONIN Q3H Lab 09/20/20 21:30 Ordered TROPONIN Q3H Lab 09/21/20 00:30 Ordered TROPONIN Q3H Lab 09/21/20 03:30 Ordered UA W/RFX UR CULTURE Stat Lab 09/20/20 15:21 Completed Medication Summary Discontinued Medications Generic Name Dose Route Start Last Admin Trade Name Freq PRN Reason Stop Dose Admin Sodium Chloride 1,000 mls @ 999 mls/hr 09/20/20 15:18 09/20/20 15:52 Sodium Chloride 0.9% 1000 Ml IV 09/20/20 16:18 999 mls/hr .Q1H1M STA Administration Sodium Chloride Confirm 09/20/20 15:50 Sodium Chloride 0.9% 1000 Ml Administered 09/20/20 15:51 Dose 1,000 mls @ ud .ROUTE .STK-MED ONE Lab/Rad Data: Laboratory Result Diagrams 09/20/20 15:16 09/20/20 16:00 Laboratory Results 09/20/20 09/20/20 09/20/20 Range/Units Unknown 16:10 16:00 WBC (4.0-10.5) K/mm3 RBC (4.1-5.4) M/mm3 Hgb (12.0-16.0) gm/dl Hct (35-47) % MCV (78-100) fl MCH (26-32) pg MCHC (32-36) g/dl RDW (11.5-14.0) % Plt Count (150-450) K/mm3 MPV (7.5-11.0) fl Gran % (36.0-66.0) % Eos # (Auto) (0-0.5) Absolute Lymphs (auto) (1.0-4.6) Absolute Monos (auto) (0.0-1.3) Lymphocytes % (24.0-44.0) % Monocytes % (0.0-12.0) % Eosinophils % (0.00-5.0) % Basophils % (0.0-0.4) % Absolute Granulocytes (1.4-6.9) Basophils # (0-0.4) Sodium 136 L (137-145) mmol/L Potassium 3.6 (3.5-5.1) mmol/L Chloride 105 (98-107) mmol/L Carbon Dioxide 26 (22-30) mmol/L Anion Gap 8.1 (5-15) MEQ/L BUN 12 (7-17) mg/dL Creatinine 0.47 L (0.52-1.04) mg/dL Estimated GFR > 60.0 ML/MIN Glucose 87 (74-106) mg/dL Calcium 9.0 (8.4-10.2) mg/dL Total Bilirubin 0.30 (0.2-1.3) mg/dL AST 30 (14-36) U/L ALT 19 (0-35) U/L Alkaline Phosphatase 72 (38-126) U/L Troponin I (0.000-0.034) ng/mL Serum Total Protein 6.8 (6.3-8.2) g/dL Albumin 4.0 (3.5-5.0) g/dL Urine Color (YELLOW) Urine Appearance (CLEAR) Urine pH (5-6) Ur Specific [place] (1.005-1.025) Urine Protein (Negative) Urine Ketones (NEGATIVE) Urine Blood (0-5) Jamir/ul Urine Nitrite (NEGATIVE) Urine Bilirubin (NEGATIVE) Urine Urobilinogen (0-1) mg/dL Ur Leukocyte Esterase (NEGATIVE) Urine WBC (Auto) (0-5) /HPF Urine RBC (Auto) (0-2) /HPF U Epithel Cells (Auto) (FEW) /HPF Urine Bacteria (Auto) (NEGATIVE) /HPF Urine Culture Reflexed (NO) Urine Glucose (NEGATIVE) mg/dL Monoscreen NEGATIVE (Negative) Influenza Type A Ag NEGATIVE (NEGATIVE) Influenza Type B Ag NEGATIVE (NEGATIVE) RSV (PCR) NEGATIVE (Negative) Group A Strep Antibody (NEGATIVE) 09/20/20 09/20/20 09/20/20 Range/Units 15:30 15:21 15:16 WBC (4.0-10.5) K/mm3 RBC (4.1-5.4) M/mm3 Hgb (12.0-16.0) gm/dl Hct (35-47) % MCV (78-100) fl MCH (26-32) pg MCHC (32-36) g/dl RDW (11.5-14.0) % Plt Count (150-450) K/mm3 MPV (7.5-11.0) fl Gran % (36.0-66.0) % Eos # (Auto) (0-0.5) Absolute Lymphs (auto) (1.0-4.6) Absolute Monos (auto) (0.0-1.3) Lymphocytes % (24.0-44.0) % Monocytes % (0.0-12.0) % Eosinophils % (0.00-5.0) % Basophils % (0.0-0.4) % Absolute Granulocytes (1.4-6.9) Basophils # (0-0.4) Sodium (137-145) mmol/L Potassium (3.5-5.1) mmol/L Chloride (98-107) mmol/L Carbon Dioxide (22-30) mmol/L Anion Gap (5-15) MEQ/L BUN (7-17) mg/dL Creatinine (0.52-1.04) mg/dL Estimated GFR ML/MIN Glucose (74-106) mg/dL Calcium (8.4-10.2) mg/dL Total Bilirubin (0.2-1.3) mg/dL AST (14-36) U/L ALT (0-35) U/L Alkaline Phosphatase (38-126) U/L Troponin I < 0.012 (0.000-0.034) ng/mL Serum Total Protein (6.3-8.2) g/dL Albumin (3.5-5.0) g/dL Urine Color YELLOW (YELLOW) Urine Appearance SLIGHTLY CLOUDY (CLEAR) Urine pH 6.0 (5-6) Ur Specific [place] 1.015 (1.005-1.025) Urine Protein NEGATIVE (Negative) Urine Ketones NEGATIVE (NEGATIVE) Urine Blood SMALL (0-5) Jamir/ul Urine Nitrite NEGATIVE (NEGATIVE) Urine Bilirubin NEGATIVE (NEGATIVE) Urine Urobilinogen NEGATIVE (0-1) mg/dL Ur Leukocyte Esterase SMALL (NEGATIVE) Urine WBC (Auto) 3-5 (0-5) /HPF Urine RBC (Auto) 6-10 (0-2) /HPF U Epithel Cells (Auto) RARE (FEW) /HPF Urine Bacteria (Auto) RARE (NEGATIVE) /HPF Urine Culture Reflexed YES (NO) Urine Glucose NEGATIVE (NEGATIVE) mg/dL Monoscreen (Negative) Influenza Type A Ag (NEGATIVE) Influenza Type B Ag (NEGATIVE) RSV (PCR) (Negative) Group A Strep Antibody NOT DETECTED (NEGATIVE) 09/20/20 Range/Units 15:16 WBC 7.6 (4.0-10.5) K/mm3 RBC 3.45 L (4.1-5.4) M/mm3 Hgb 10.7 L (12.0-16.0) gm/dl Hct 32.5 L (35-47) % MCV 94.2 (78-100) fl MCH 31.0 (26-32) pg MCHC 32.9 (32-36) g/dl RDW 13.4 (11.5-14.0) % Plt Count 225 (150-450) K/mm3 MPV 10.9 (7.5-11.0) fl Gran % 48.7 (36.0-66.0) % Eos # (Auto) 0.08 (0-0.5) Absolute Lymphs (auto) 2.92 (1.0-4.6) Absolute Monos (auto) 0.86 (0.0-1.3) Lymphocytes % 38.3 (24.0-44.0) % Monocytes % 11.3 (0.0-12.0) % Eosinophils % 1.0 (0.00-5.0) % Basophils % 0.7 (0.0-0.4) % Absolute Granulocytes 3.71 (1.4-6.9) Basophils # 0.05 (0-0.4) Sodium (137-145) mmol/L Potassium (3.5-5.1) mmol/L Chloride (98-107) mmol/L Carbon Dioxide (22-30) mmol/L Anion Gap (5-15) MEQ/L BUN (7-17) mg/dL Creatinine (0.52-1.04) mg/dL Estimated GFR ML/MIN Glucose (74-106) mg/dL Calcium (8.4-10.2) mg/dL Total Bilirubin (0.2-1.3) mg/dL AST (14-36) U/L ALT (0-35) U/L Alkaline Phosphatase (38-126) U/L Troponin I (0.000-0.034) ng/mL Serum Total Protein (6.3-8.2) g/dL Albumin (3.5-5.0) g/dL Urine Color (YELLOW) Urine Appearance (CLEAR) Urine pH (5-6) Ur Specific [place] (1.005-1.025) Urine Protein (Negative) Urine Ketones (NEGATIVE) Urine Blood (0-5) Jamir/ul Urine Nitrite (NEGATIVE) Urine Bilirubin (NEGATIVE) Urine Urobilinogen (0-1) mg/dL Ur Leukocyte Esterase (NEGATIVE) Urine WBC (Auto) (0-5) /HPF Urine RBC (Auto) (0-2) /HPF U Epithel Cells (Auto) (FEW) /HPF Urine Bacteria (Auto) (NEGATIVE) /HPF Urine Culture Reflexed (NO) Urine Glucose (NEGATIVE) mg/dL Monoscreen (Negative) Influenza Type A Ag (NEGATIVE) Influenza Type B Ag (NEGATIVE) RSV (PCR) (Negative) Group A Strep Antibody (NEGATIVE) - Progress Progress: re-examined Air Movement: good Progress Note: 09/20/20 17:08 1 x-ray of the chest reveals a normal heart and normal lungs. The bony thorax again demonstrates old right fifth rib fracture and new nondisplaced left 5 through 9 lateral rib fractures of uncertain chronicity. 09/20/20 17:12 The nurse asked the patient whether or not she felt comfortable and safe at home. The patient answered yes. Blood Culture(s) Obtained: No Antibiotics given: No Counseled pt/family regarding: lab results, diagnosis, need for follow-up, rad results - Departure Departure Disposition: Home Clinical Impression: UTI (urinary tract infection) Condition: Stable Critical Care Time: No Referrals: TROY HERNANDEZ [Primary Care Provider] - Additional Instructions: Drink plenty of fluids. Follow-up with primary care physician for further management. Use Tylenol and ibuprofen for pain control Prescriptions: Ciprofloxacin [Cipro 500 MG] 500 mg PO BID #14 tablet
[2020-09-20] MEDS ORDERED: Sodium Chloride 0.9% 1000 ML 1,000 ML ONE (15:50)
[2020-09-20 16:08] LABS: Absolute Neutrophil Ct (ANC) 3.71 (1.4-6.9); BASOPHIL % 0.7 % (0.0-0.4); Basophil (Absolute #) 0.05 (0-0.4); Eosinophil (Absolute #) 0.08 (0-0.5); Hematocrit 32.5 % (35-47); Hemoglobin 10.7 gm/dl (12.0-16.0); Lymphocyte (Absolute #) 2.92 (1.0-4.6); Lymphocytes % 38.3 % (24.0-44.0); Mean Cell Volume 94.2 fl (78-100); Mean Corpuscular Hgb Concent. 32.9 g/dl (32-36); Mean Platelet Volume 10.9 fl (7.5-11.0); Monocyte (Absolute #) 0.86 (0.0-1.3); Monocytes % 11.3 % (0.0-12.0); Neutrophil % 48.7 % (36.0-66.0); Platelet Count 225 K/mm3 (150-450); Red Blood Count 3.45 M/mm3 (4.1-5.4); Red Cell Distribution Width 13.4 % (11.5-14.0); White Blood Count 7.6 K/mm3 (4.0-10.5)
--- NOTE | 2020-09-20 16:26 | XRAY ---
Indication: Cough and congestion. Comparison: March 31, 2020. Portable chest again demonstrates normal heart and lungs. Bony thorax again demonstrates old right 5 rib fracture with new nondisplaced left 5-9 lateral rib fractures of uncertain chronicity.
[2020-09-20 16:28] LABS: ALKALINE PHOSPHATASE 72 U/L (38-126); ANION GAP 8.1 MEQ/L (5-15); BLOOD UREA NITROGEN 12 mg/dL (7-17); CHLORIDE 105 mmol/L (98-107); Carbon Dioxide 26 mmol/L (22-30); Creatinine 1 0.47 mg/dL (0.52-1.04); EST GLOMERULAR FILTRATION RATE > 60.0 ML/MIN; Glucose 87 mg/dL (74-106); Potassium 3.6 mmol/L (3.5-5.1); SGOT/AST 30 U/L (14-36); SGPT/ALT 19 U/L (0-35); SODIUM 136 mmol/L (137-145); Total Protein 6.8 g/dL (6.3-8.2)
[2020-09-20 16:45] LABS: INFLUENZA A NEGATIVE (NEGATIVE); INFLUENZA B NEGATIVE (NEGATIVE); RESPIRATORY SYNCTIAL VIRUS NEGATIVE (Negative)
[2020-09-20 17:09] VITALS: BP 136/98; PULSE 76
[2020-09-20 17:14] VITALS: O2SAT 97
== END 2020-09-20 17:55 | disposition home or self-care (01) ==
LOC: ED 14:21
DX: N39.0 Urinary tract infection, site not specified (principal)
CPT/HCPCS: 36415; 71045; 80053; 81001; 84484; 85025; 86308; 87086; 87631; 87651; 93005; 94760; 99284; U0003

== ENCOUNTER 2021-11-09 03:23 | Emergency (ER) | payer OTHER ==
[2021-11-09] MEDS ORDERED: Zofran 4 MG/2 ML VIAL ONE (04:07)
[2021-11-09] MEDS ORDERED: TORAdol 30 mg Injection ONE (04:07)
[2021-11-09] MEDS ORDERED: Sodium Chloride 0.9% 1000 ML 1,000 ML ONE (04:07)
[2021-11-09] MEDS: TORAdol 30 mg Injection IV ONE (04:08)
[2021-11-09] MEDS: Sodium Chloride 0.9% 1000 ML 1,000 ML IV STA (04:08)
[2021-11-09] MEDS: Zofran 4 MG/2 ML VIAL IV ONE (04:08)
--- NOTE | 2021-11-09 04:16 | ERPHSYRPT ---
- History of Present Illness Time Seen by Provider: 11/09/21 03:37 Patient Subjective Stated Complaint: "My stomach hurts." Triage Nursing Assessment: The patient reported a three day onset of abdominal discomfort that she described as "my inside felt tight and then like they twisted and dropped." The patient denied any recent trauma/surgies/illnesses. She reported that she has had two periods within the last two months and that she is incontinent of urine "all the time, it just comes out." She reported diffuse abdominal pain. Denied nausea, vomiting, diarrhea, dysuria, or hematochezia. Symmetrical chest expansion. Heart tones S1/S2 RRR. Lungs vesicular with adequate movement. Abdomen flat non-distended, non-surgical, and without peritoneal signs of voluntary/involuntary guarding. Bowel sounds present in all quadrants. Physician History: 36 years old female with history of anxiety depression, drug abuse on methadone presented in the ER with 3 days history of increasing lower abdominal/hip pain after she worked out vigorously. Patient is currently on her cycle and was concerned about having blood in stool, was evaluated at [facility] yesterday, Was negative was discharged. Patient reports having soreness of abdominal wall and it feels like inside there is some care and things are falling apart. Does have off-and-on incontinence without any back pain. No loss of bowel control. Patient is very anxious and jittery, all over the place. Denies any drug use. Timing/Duration: day(s) (2), gradual onset, worse Activities at Onset: rest Quality: cramping, sharpness Abdominal Pain Onset Location: RLQ, LLQ, periumbilical, suprapubic Pain Radiation: groin Severity of Pain-Max: moderate Severity of Pain-Current: moderate Modifying Factors: Worsens With: movement, walking Associated Symptoms: nausea, vomiting, No back Allergies/Adverse Reactions: penicillin G Allergy (Intermediate, Verified 11/10/21 10:42) Home Medications: Methadone HCl 130 mg PO DAILY 03/27/20 [History] Hydroxyzine HCl 25 mg [Atarax 25 mg] 25 mg PO DAILY 09/20/20 [History] Omeprazole 20 mg PO DAILY 09/20/20 [History] PARoxetine HCL [Paroxetine HCl] 40 mg PO DAILY 09/20/20 [History] Hx Tetanus, Diphtheria Vaccination/Date Given: No Hx Influenza Vaccination/Date Given: No Hx Pneumococcal Vaccination/Date Given: No Travel Risk - International Travel Have you traveled outside of the country in past 3 weeks: No - Coronavirus Screening Are you exhibiting any of the following symptoms?: No Close contact with a COVID-19 positive Pt in past 14-21 Days: No - Vaccine Status Have you recieved a Covid-19 vaccination: Yes Casket 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: Unknown - Vaccination Dates Date of 2cond Vaccination (if applicable): 02/2021 Dates if Unknown: na - Review of Systems Constitutional: No Symptoms Eyes: No Symptoms Ears, Nose, & Throat: No Symptoms Respiratory: No Symptoms Cardiac: No Symptoms Abdominal/Gastrointestinal: Abdominal Pain, Nausea, Vomiting Genitourinary Symptoms: Frequency, Incontinence Musculoskeletal: Myalgias Skin: No Symptoms Neurological: No Symptoms Psychological: Anxiety, Depression Endocrine: No Symptoms Hematologic/Lymphatic: No Symptoms Immunological/Allergic: No Symptoms - Past Medical History Pertinent Past Medical History: Yes Neurological History: No Pertinent History ENT History: No Pertinent History Cardiac History: No Pertinent History Respiratory History: No Pertinent History Endocrine Medical History: No Pertinent History Musculoskeletal History: No Pertinent History GI Medical History: No Pertinent History History: No Pertinent History Psycho-Social History: Anxiety, Depression, Panic Disorder Female Reproductive Disorders: No Pertinent History - Past Surgical History Past Surgical History: Yes Musculoskeletal: Orthopedic Surgery Other Surgical History: Foot surgery - Social History Smoking Status: Current every day smoker How long have you smoked: YRS Exposure to second hand smoke: Yes Drug Use: none Patient Lives Alone: No - Female History Hx Last Menstrual Period: 11/09/21 Hx Now: (unkn) - Nursing Vital Signs Nursing Vital Signs: Initial Vital Signs Temperature 98.6 F 11/09/21 03:25 Pulse Rate 108 H 11/09/21 03:25 Respiratory Rate 16 11/09/21 03:25 Blood Pressure 135/96 11/09/21 03:25 O2 Sat by Pulse Oximetry 98 11/09/21 03:25 Pain Scale Pain Intensity 5 - Physical Exam General Appearance: no apparent distress, alert, anxiety Eye Exam: PERRL/EOMI, eyes nml inspection Ears, Nose, Throat Exam: normal ENT inspection, pharynx normal Neck Exam: normal inspection, non-tender, supple, full range of motion Respiratory Exam: normal breath sounds, lungs clear Cardiovascular Exam: regular rate/rhythm, tachycardia Gastrointestinal/Abdomen Exam: soft, normal bowel sounds, tenderness (Lower abdomen with some guarding without rebound tenderness.) Pelvic Exam: normal external exam, No adnexal tenderness, No cervical motion tenderness, No uterine tenderness, No vaginal discharge Rectal Exam: normal exam, normal rectal tone, other (Normal perianal sensation.) Back Exam: normal inspection, normal range of motion, No CVA tenderness, No vertebral tenderness Extremity Exam: normal inspection, normal range of motion, pelvis stable Neurologic Exam: alert, oriented x 3, cooperative, 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 tested, nml cerebellar function, nml station & gait, sensation nml, other (Tremors), No norm al mood/affect, No motor deficits Skin Exam: normal color SpO2 Interpretation: normal SpO2: 98 O2 Delivery: Room Air Ordered Tests: Medication Summary Discontinued Medications Generic Name Dose Route Start Last Admin Trade Name Freq PRN Reason Stop Dose Admin Sodium Chloride 1,000 mls @ 999 mls/hr 11/09/21 04:04 11/09/21 06:03 Sodium Chloride 0.9% 1000 Ml IV 11/09/21 05:04 Infused .Q1H1M STA Infusion Sodium Chloride Confirm 11/09/21 04:07 Sodium Chloride 0.9% 1000 Ml Administered 11/09/21 04:08 Dose 1,000 mls @ ud .ROUTE .STK-MED ONE Ketorolac Tromethamine 30 mg 11/09/21 04:04 11/09/21 04:08 Ketorolac Tromethamine 30 Mg/Ml Inj IV 11/09/21 04:05 30 mg STAT ONE Administration Ketorolac Tromethamine Confirm 11/09/21 04:07 Ketorolac Tromethamine 30 Mg/Ml Inj Administered 11/09/21 04:08 Dose 30 mg .ROUTE .STK-MED ONE Ondansetron HCl 4 mg 11/09/21 04:04 11/09/21 04:08 Ondansetron Hcl 4 Mg/2 Ml Vial IV 11/09/21 04:05 4 mg STAT ONE Administration Ondansetron HCl Confirm 11/09/21 04:07 Ondansetron Hcl 4 Mg/2 Ml Vial Administered 11/09/21 04:08 Dose 4 mg .ROUTE .STK-MED ONE Lab/Rad Data: Laboratory Result Diagrams 11/09/21 04:24 11/09/21 04:24 Laboratory Results 11/09/21 11/09/21 11/09/21 Range/Units 04:25 04:24 04:24 WBC (4.0-10.5) K/mm3 RBC (4.1-5.4) M/mm3 Hgb (12.0-16.0) gm/dl Hct (35-47) % MCV (78-100) fl MCH (26-32) pg MCHC (32-36) g/dl RDW (11.5-14.0) % Plt Count (150-450) K/mm3 MPV (7.5-11.0) fl Gran % (36.0-66.0) % Eos # (Auto) (0-0.5) Absolute Lymphs (auto) (1.0-4.6) Absolute Monos (auto) (0.0-1.3) Lymphocytes % (24.0-44.0) % Monocytes % (0.0-12.0) % Eosinophils % (0.00-5.0) % Basophils % (0.0-0.4) % Absolute Granulocytes (1.4-6.9) Basophils # (0-0.4) Sodium (137-145) mmol/L Potassium (3.5-5.1) mmol/L Chloride (98-107) mmol/L Carbon Dioxide (22-30) mmol/L Anion Gap (5-15) MEQ/L BUN (7-17) mg/dL Creatinine (0.52-1.04) mg/dL Estimated GFR ML/MIN Glucose (74-106) mg/dL Lactic Acid 0.8 (0.4-2.0) Calcium (8.4-10.2) mg/dL Total Bilirubin (0.2-1.3) mg/dL AST (14-36) U/L ALT (0-35) U/L Alkaline Phosphatase (38-126) U/L Serum Total Protein (6.3-8.2) g/dL Albumin (3.5-5.0) g/dL Lipase (23-300) U/L Urine Color (YELLOW) Urine Appearance (CLEAR) Urine pH (5-6) Ur Specific [place] (1.005-1.025) Urine Protein (Negative) Urine Ketones (NEGATIVE) Urine Blood (0-5) Jamir/ul Urine Nitrite (NEGATIVE) Urine Bilirubin (NEGATIVE) Urine Urobilinogen (0-1) mg/dL Ur Leukocyte Esterase (NEGATIVE) Urine WBC (Auto) (0-5) /HPF Urine RBC (Auto) (0-2) /HPF U Epithel Cells (Auto) (FEW) /HPF Urine Bacteria (Auto) (NEGATIVE) /HPF Urine Mucus (Auto) (NEGATIVE) /HPF Urine Culture Reflexed (NO) Urine Glucose (NEGATIVE) mg/dL Urine HCG, Qual NEGATIVE (Negative) Urine Opiates Level NEGATIVE (NEGATIVE) Ur Methadone POSITIVE (NEGATIVE) Urine Barbiturates NEGATIVE (NEGATIVE) Ur Phencyclidine (PCP) NEGATIVE (NEGATIVE) Urine Amphetamine NEGATIVE (NEGATIVE) U Benzodiazepine Level NEGATIVE (NEGATIVE) Urine Cocaine NEGATIVE (NEGATIVE) Urine Marijuana (THC) NEGATIVE (NEGATIVE) 11/09/21 11/09/21 11/09/21 Range/Units 04:24 04:24 04:24 WBC 8.0 (4.0-10.5) K/mm3 RBC 4.05 L (4.1-5.4) M/mm3 Hgb 12.6 (12.0-16.0) gm/dl Hct 38.1 (35-47) % MCV 94.1 (78-100) fl MCH 31.1 (26-32) pg MCHC 33.1 (32-36) g/dl RDW 12.7 (11.5-14.0) % Plt Count 247 (150-450) K/mm3 MPV 10.3 (7.5-11.0) fl Gran % 74.0 H (36.0-66.0) % Eos # (Auto) 0 (0-0.5) Absolute Lymphs (auto) 1.44 (1.0-4.6) Absolute Monos (auto) 0.60 (0.0-1.3) Lymphocytes % 18.0 L (24.0-44.0) % Monocytes % 7.5 (0.0-12.0) % Eosinophils % 0.0 (0.00-5.0) % Basophils % 0.5 (0.0-0.4) % Absolute Granulocytes 5.90 (1.4-6.9) Basophils # 0.04 (0-0.4) Sodium 133 L (137-145) mmol/L Potassium 4.0 (3.5-5.1) mmol/L Chloride 101 (98-107) mmol/L Carbon Dioxide 24 (22-30) mmol/L Anion Gap 12.5 (5-15) MEQ/L BUN 16 (7-17) mg/dL Creatinine 0.61 (0.52-1.04) mg/dL Estimated GFR > 60.0 ML/MIN Glucose 106 (74-106) mg/dL Lactic Acid (0.4-2.0) Calcium 9.4 (8.4-10.2) mg/dL Total Bilirubin 0.60 (0.2-1.3) mg/dL AST 28 (14-36) U/L ALT 27 (0-35) U/L Alkaline Phosphatase 47 (38-126) U/L Serum Total Protein 7.3 (6.3-8.2) g/dL Albumin 4.5 (3.5-5.0) g/dL Lipase 140 (23-300) U/L Urine Color YELLOW (YELLOW) Urine Appearance SLIGHTLY CLOUDY (CLEAR) Urine pH 6.0 (5-6) Ur Specific [place] 1.019 (1.005-1.025) Urine Protein 100 (Negative) Urine Ketones TRACE (NEGATIVE) Urine Blood LARGE (0-5) Jamir/ul Urine Nitrite NEGATIVE (NEGATIVE) Urine Bilirubin NEGATIVE (NEGATIVE) Urine Urobilinogen NEGATIVE (0-1) mg/dL Ur Leukocyte Esterase TRACE (NEGATIVE) Urine WBC (Auto) 3-5 (0-5) /HPF Urine RBC (Auto) 11-15 (0-2) /HPF U Epithel Cells (Auto) NONE (FEW) /HPF Urine Bacteria (Auto) FEW (NEGATIVE) /HPF Urine Mucus (Auto) SLIGHT (NEGATIVE) /HPF Urine Culture Reflexed YES (NO) Urine Glucose NEGATIVE (NEGATIVE) mg/dL Urine HCG, Qual (Negative) Urine Opiates Level (NEGATIVE) Ur Methadone (NEGATIVE) Urine Barbiturates (NEGATIVE) Ur Phencyclidine (PCP) (NEGATIVE) Urine Amphetamine (NEGATIVE) U Benzodiazepine Level (NEGATIVE) Urine Cocaine (NEGATIVE) Urine Marijuana (THC) (NEGATIVE) - Progress Progress: improved, re-examined Progress Note: 11/09/21 06:36 She is given fluids and Toradol, on reevaluation feeling better. Grossly unremarkable lab work. CT showed right-sided adnexal cyst. 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 Also CT showed some element of constipation and recommended MiraLAX. Because of exertional/diagnosis workout she probably might have some element of abdominal wall strain. Discussed signs symptoms of worsening needing return to ER which he seems understanding. Counseled pt/family regarding: lab results, diagnosis, need for follow-up, rad results, smoking cessation - Departure Departure Disposition: Home Clinical Impression: Ovarian cyst, Constipation, Abdominal muscle strain Condition: Stable Critical Care Time: No Referrals: TROY HERNANDEZ MD [Primary Care Provider] - Follow up/PCP as directed (Tomorrow for reevaluation) CARY DEGROOT DO [ACTIVE STAFF] - Follow up/PCP as directed (Call tomorrow for appointment for reevaluation) Instructions: Acute Abdomen (Belly Pain), Adult (DC), Ovarian Cyst (DC) Additional Instructions: Take Tylenol/ibuprofen as needed for pain. Drink plenty of fluids. Take daily MiraLAX/stool softener. Follow-up with primary care and OB for reevaluation. Return to ER for any worsening. Avoid exertional activities. Prescriptions: Polyethylene Glycol 3350 17 gm [Miralax Powder 17GM PACKET] 17 gm PO DAILY #30 packet
[2021-11-09 04:26] LABS: BASOPHIL % 0.5 % (0.0-0.4); Basophil (Absolute #) 0.04 (0-0.4); Eosinophil (Absolute #) 0 (0-0.5); Hematocrit 38.1 % (35-47); Hemoglobin 12.6 gm/dl (12.0-16.0); Lymphocyte (Absolute #) 1.44 (1.0-4.6); Mean Cell Volume 94.1 fl (78-100); Mean Corpuscular Hemoglobin 31.1 pg (26-32); Mean Corpuscular Hgb Concent. 33.1 g/dl (32-36); Mean Platelet Volume 10.3 fl (7.5-11.0); Monocytes % 7.5 % (0.0-12.0); Platelet Count 247 K/mm3 (150-450); Red Blood Count 4.05 M/mm3 (4.1-5.4); Red Cell Distribution Width 12.7 % (11.5-14.0)
[2021-11-09 04:35] LABS: Appearance SLIGHTLY CLOUDY (CLEAR); Bacteria FEW /HPF (NEGATIVE); Bilirubin NEGATIVE (NEGATIVE); Blood LARGE Ery/ul (0-5); Glucose NEGATIVE (NEGATIVE); Ketones TRACE (NEGATIVE); Leukocyte Esterase TRACE (NEGATIVE); Mucus SLIGHT /HPF (NEGATIVE); Nitrite NEGATIVE (NEGATIVE); Protein,Urine Dip 100 (Negative); Specific Gravity 1.019 (1.005-1.025); Urobilinogen NEGATIVE mg/dL (0-1)
[2021-11-09 04:37] VITALS: BP 157/102; PULSE 100
[2021-11-09 04:37] LABS: ALBUMIN 4.5 g/dL (3.5-5.0); ALKALINE PHOSPHATASE 47 U/L (38-126); ANION GAP 12.5 MEQ/L (5-15); BLOOD UREA NITROGEN 16 mg/dL (7-17); CHLORIDE 101 mmol/L (98-107); Calcium 9.4 mg/dL (8.4-10.2); Carbon Dioxide 24 mmol/L (22-30); Creatinine 1 0.61 mg/dL (0.52-1.04); EST GLOMERULAR FILTRATION RATE > 60.0 ML/MIN; Glucose 106 mg/dL (74-106); LIPASE 140 U/L (23-300); SGOT/AST 28 U/L (14-36); SGPT/ALT 27 U/L (0-35); SODIUM 133 mmol/L (137-145); Total Protein 7.3 g/dL (6.3-8.2)
[2021-11-09 04:44] LABS: Amphetamine,Urine NEGATIVE (NEGATIVE); Barbiturate,Urine NEGATIVE (NEGATIVE); Benzodiazepine,Urine NEGATIVE (NEGATIVE); Cocaine,Urine NEGATIVE (NEGATIVE); Methadone,Urine POSITIVE (NEGATIVE); Opiate,Urine NEGATIVE (NEGATIVE); PCP,Urine NEGATIVE (NEGATIVE); THC,Urine NEGATIVE (NEGATIVE)
[2021-11-09 06:39] VITALS: O2SAT 98
--- NOTE | 2021-11-09 08:16 | XRAY ---
Indication: Abdomen/pelvic pain. Multiple contiguous axial images obtained through the abdomen and pelvis using 80 cc Isovue 370 contrast. Comparison: None Lung bases are clear. Heart not enlarged. Noncontrasted stomach and bowel loops appear nonobstructed. Appendix not seen. There is moderate scattered colonic fecal debris predominantly in the ascending and transverse colon. 3.8 x 4.0 cm right adnexa cyst presumed ovary in etiology. No free fluid/air. Remaining liver, gallbladder, pancreas, spleen, adrenal glands, kidneys, ureters, bladder, uterus, and aorta are unremarkable. No pathologic retroperitoneal lymphadenopathy. Osseous structures intact. No ventral or inguinal hernias. Impression: 1. 4 cm right adnexa cystic mass presumed ovary in etiology. Pelvic sonogram may yield further information if clinically warranted. 2. Moderate right hemicolon fecal stasis. 3. Remaining CT abdomen/pelvis with contrast exam is negative. Comment: Preliminary interpretation made by C. No critical discrepancy.
== END 2021-11-09 06:47 | disposition home or self-care (01) ==
LOC: ED 03:23
DX: S39.011A Strain of muscle, fascia and tendon of abdomen, initial encounter (principal); X50.0XXA Overexertion from strenuous movement or load, initial encounter; Y93.79 Activity, other specified sports and athletics; N83.209 Unspecified ovarian cyst, unspecified side; K59.00 Constipation, unspecified; R11.2 Nausea with vomiting, unspecified; Z79.891 Long term (current) use of opiate analgesic; Z72.0 Tobacco use
CPT/HCPCS: 36000; 36415; 74177; 80053; 80307; 81001; 83605; 83690; 84703; 85025; 87086; 96374; 96375; 99284; J1885; J2405

== ENCOUNTER 2021-11-10 10:19 | Emergency (ER) | payer OTHER ==
--- NOTE | 2021-11-10 11:12 | ERPHSYRPT ---
- History of Present Illness Source: patient Exam Limitations: other (Extremely poor historian) Patient Subjective Stated Complaint: "cyst on vagina" Triage Nursing Assessment: Pt lying in bed, fidgeting, speech is rapid, vitals stable. c/o pain 6/10 to vaginal area. Physician History: 36 yo wf who is an extremely poor historian presents who presents w vaginal pain/RLQ pain/rectal pain. Pain is 4.5/10. She was seen at [facility] ER 2 days ago and at [place] yesterday. Dr. Gage did a pelvic exam yesterday wo acute findings, and CT ab-pelvis demonstrated R ovarian cyst/constipation. Pt is currently on her periord. She denies N/V/D/fever/dysuria. Timing/Duration: other (2-3 days) Activites at Onset: rest Quality: sharpness Onset Location: RLQ, suprapubic Pain Radiation: none Severity of Pain-Max: severe Severity of Pain-Current: moderate Prior abdominal problems: UTI Sexual intercourse history: non-contributory Modifying Factors: Improves With: nothing Associated Symptoms: abdominal pain, loss of bladder control, No fever, No chills, No diaphoresis, No nausea, No vomiting, No dysuria, No nocturia, No polyuria, No urinary frequency, No , No lower back pain, No lumps, No mass, No swelling, No syncope, No vaginal discharge Allergies/Adverse Reactions: penicillin G Allergy (Intermediate, Verified 11/10/21 10:42) Home Medications: Methadone HCl 130 mg PO DAILY 03/27/20 [History] Hydroxyzine HCl 25 mg [Atarax 25 mg] 25 mg PO DAILY 09/20/20 [History] Omeprazole 20 mg PO DAILY 09/20/20 [History] PARoxetine HCL [Paroxetine HCl] 40 mg PO DAILY 09/20/20 [History] Hx Tetanus, Diphtheria Vaccination/Date Given: No Hx Influenza Vaccination/Date Given: No Hx Pneumococcal Vaccination/Date Given: No Travel Risk - International Travel Have you traveled outside of the country in past 3 weeks: No - Coronavirus Screening Are you exhibiting any of the following symptoms?: No Close contact with a COVID-19 positive Pt in past 14-21 Days: No - Vaccine Status Have you recieved a Covid-19 vaccination: Yes Blending 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 pt states first dose was first week of April. - Review of Systems Constitutional: No Symptoms Eyes: No Symptoms Ears, Nose, & Throat: No Symptoms Respiratory: No Symptoms Cardiac: No Symptoms Abdominal/Gastrointestinal: No Symptoms, Abdominal Pain Genitourinary Symptoms: No Symptoms, Vaginal Bleeding (On period) Musculoskeletal: No Symptoms Skin: No Symptoms Neurological: No Symptoms Psychological: No Symptoms Endocrine: No Symptoms Hematologic/Lymphatic: No Symptoms Immunological/Allergic: No Symptoms - Past Medical History Pertinent Past Medical History: Yes Neurological History: No Pertinent History ENT History: No Pertinent History Cardiac History: No Pertinent History Respiratory History: No Pertinent History Endocrine Medical History: No Pertinent History Musculoskeletal History: No Pertinent History GI Medical History: No Pertinent History History: No Pertinent History Psycho-Social History: Anxiety, Depression, Panic Disorder Female Reproductive Disorders: No Pertinent History - Past Surgical History Past Surgical History: Yes Musculoskeletal: Orthopedic Surgery Other Surgical History: Foot surgery - Social History Smoking Status: Current every day smoker How long have you smoked: YRS Exposure to second hand smoke: Yes Drug Use: none Patient Lives Alone: No Significant Family History: no pertinent family hx - Female History Hx Last Menstrual Period: 11/10/2021 Hx Now: No - Nursing Vital Signs Nursing Vital Signs: Initial Vital Signs Temperature 98.5 F 11/10/21 10:33 Pulse Rate 91 H 11/10/21 10:33 Respiratory Rate 16 11/10/21 10:33 Blood Pressure 130/95 11/10/21 10:33 O2 Sat by Pulse Oximetry 99 11/10/21 10:33 Pain Scale Pain Intensity 6 WNL - Physical Exam General Appearance: no apparent distress Eye Exam: PERRL/EOMI, eyes nml inspection Ears, Nose, Throat Exam: normal ENT inspection, TMs normal, pharynx normal, moist mucous membranes Neck Exam: normal inspection, non-tender, supple, full range of motion, No meningismus, No mass, No Brudzinski, No Kernig's Respiratory Exam: normal breath sounds, lungs clear, airway intact Cardiovascular Exam: regular rate/rhythm, normal heart sounds, normal peripheral pulses, No murmur Gastrointestinal/Abdomen Exam: soft, normal bowel sounds, tenderness (Mild RLQ ttp wo guarding or rebound) Pelvic Exam: normal external exam Back Exam: normal inspection, normal range of motion Extremity Exam: normal inspection, normal range of motion Neurologic Exam: alert, oriented x 3, cooperative, rat 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 II-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 tested, normal mood/affect, nml station & gait, sensation nml Skin Exam: normal color, warm, dry Lymphatic Exam: adenopathy SpO2 Interpretation: normal SpO2: 99 O2 Delivery: Room Air - Course Nursing assessment & vital signs reviewed: Yes Ordered Tests: Active Orders 24 hr Category Date Time Status CBC W DIFF Stat Lab 11/10/21 11:33 Completed CMP Stat Lab 11/10/21 11:33 Completed CULTURE,URINE Stat Lab 11/10/21 11:32 Received HCG QUALITATIVE,SERUM Stat Lab 11/10/21 11:33 Completed UA W/RFX UR CULTURE Stat Lab 11/10/21 11:32 Completed Medication Summary Discontinued Medications Generic Name Dose Route Start Last Admin Trade Name Freq PRN Reason Stop Dose Admin Ketorolac Tromethamine 30 mg 11/10/21 12:56 11/10/21 13:00 Ketorolac Tromethamine 30 Mg/Ml Inj IM 11/10/21 12:57 30 mg STAT ONE Administration Ketorolac Tromethamine Confirm 11/10/21 12:58 Ketorolac Tromethamine 30 Mg/Ml Inj Administered 11/10/21 12:59 Dose 30 mg .ROUTE .STK-MED ONE Lab/Rad Data: Laboratory Result Diagrams 11/10/21 11:33 11/10/21 11:33 Laboratory Results 11/10/21 11/10/21 11/10/21 Range/Units 11:33 11:33 11:33 WBC 6.5 (4.0-10.5) K/mm3 RBC 4.37 (4.1-5.4) M/mm3 Hgb 13.7 (12.0-16.0) gm/dl Hct 41.5 (35-47) % MCV 95.0 (78-100) fl MCH 31.4 (26-32) pg MCHC 33.0 (32-36) g/dl RDW 12.5 (11.5-14.0) % Plt Count 312 (150-450) K/mm3 MPV 10.4 (7.5-11.0) fl Gran % 65.7 (36.0-66.0) % Eos # (Auto) 0.01 (0-0.5) Absolute Lymphs (auto) 1.47 (1.0-4.6) Absolute Monos (auto) 0.68 (0.0-1.3) Lymphocytes % 22.7 L (24.0-44.0) % Monocytes % 10.5 (0.0-12.0) % Eosinophils % 0.2 (0.00-5.0) % Basophils % 0.9 (0.0-0.4) % Absolute Granulocytes 4.25 (1.4-6.9) Basophils # 0.06 (0-0.4) Sodium 137 (137-145) mmol/L Potassium 3.8 (3.5-5.1) mmol/L Chloride 97 L (98-107) mmol/L Carbon Dioxide 30 (22-30) mmol/L Anion Gap 14.5 (5-15) MEQ/L BUN 17 (7-17) mg/dL Creatinine 0.51 L (0.52-1.04) mg/dL Estimated GFR > 60.0 ML/MIN Glucose 102 (74-106) mg/dL Calcium 9.9 (8.4-10.2) mg/dL Total Bilirubin 0.70 (0.2-1.3) mg/dL AST 37 H (14-36) U/L ALT 33 (0-35) U/L Alkaline Phosphatase 56 (38-126) U/L Serum Total Protein 8.5 H (6.3-8.2) g/dL Albumin 5.3 H (3.5-5.0) g/dL Serum , Qual NEGATIVE (Negative) Urine Color (YELLOW) Urine Appearance (CLEAR) Urine pH (5-6) Ur Specific [place] (1.005-1.025) Urine Protein (Negative) Urine Ketones (NEGATIVE) Urine Blood (0-5) Jamir/ul Urine Nitrite (NEGATIVE) Urine Bilirubin (NEGATIVE) Urine Urobilinogen (0-1) mg/dL Ur Leukocyte Esterase (NEGATIVE) Urine WBC (Auto) (0-5) /HPF Urine RBC (Auto) (0-2) /HPF U Epithel Cells (Auto) (FEW) /HPF Urine Bacteria (Auto) (NEGATIVE) /HPF Urine Mucus (Auto) (NEGATIVE) /HPF Urine Culture Reflexed (NO) Urine Glucose (NEGATIVE) mg/dL 11/10/21 Range/Units 11:32 WBC (4.0-10.5) K/mm3 RBC (4.1-5.4) M/mm3 Hgb (12.0-16.0) gm/dl Hct (35-47) % MCV (78-100) fl MCH (26-32) pg MCHC (32-36) g/dl RDW (11.5-14.0) % Plt Count (150-450) K/mm3 MPV (7.5-11.0) fl Gran % (36.0-66.0) % Eos # (Auto) (0-0.5) Absolute Lymphs (auto) (1.0-4.6) Absolute Monos (auto) (0.0-1.3) Lymphocytes % (24.0-44.0) % Monocytes % (0.0-12.0) % Eosinophils % (0.00-5.0) % Basophils % (0.0-0.4) % Absolute Granulocytes (1.4-6.9) Basophils # (0-0.4) Sodium (137-145) mmol/L Potassium (3.5-5.1) mmol/L Chloride (98-107) mmol/L Carbon Dioxide (22-30) mmol/L Anion Gap (5-15) MEQ/L BUN (7-17) mg/dL Creatinine (0.52-1.04) mg/dL Estimated GFR ML/MIN Glucose (74-106) mg/dL Calcium (8.4-10.2) mg/dL Total Bilirubin (0.2-1.3) mg/dL AST (14-36) U/L ALT (0-35) U/L Alkaline Phosphatase (38-126) U/L Serum Total Protein (6.3-8.2) g/dL Albumin (3.5-5.0) g/dL Serum , Qual (Negative) Urine Color YELLOW (YELLOW) Urine Appearance SLIGHTLY CLOUDY (CLEAR) Urine pH 7.0 (5-6) Ur Specific [place] 1.017 (1.005-1.025) Urine Protein 30 (Negative) Urine Ketones TRACE (NEGATIVE) Urine Blood SMALL (0-5) Jamir/ul Urine Nitrite NEGATIVE (NEGATIVE) Urine Bilirubin NEGATIVE (NEGATIVE) Urine Urobilinogen 2 (0-1) mg/dL Ur Leukocyte Esterase NEGATIVE (NEGATIVE) Urine WBC (Auto) 3-5 (0-5) /HPF Urine RBC (Auto) 26-50 (0-2) /HPF U Epithel Cells (Auto) NONE (FEW) /HPF Urine Bacteria (Auto) RARE (NEGATIVE) /HPF Urine Mucus (Auto) SLIGHT (NEGATIVE) /HPF Urine Culture Reflexed YES (NO) Urine Glucose NEGATIVE (NEGATIVE) mg/dL Pt on period - Progress Progress: improved Progress Note: 11/10/21 12:58 30mg IM Toradol Counseled pt/family regarding: lab results, diagnosis, need for follow-up - Departure Departure Disposition: Home Clinical Impression: Pelvic pain Condition: Stable Critical Care Time: No Referrals: TROY HERNANDEZ MD [Primary Care Provider] - Follow up/PCP as directed Instructions: Acute Pelvic Pain (DC) Additional Instructions: Follow up with your family MD or websphere commerce architect Return to ER as needed
[2021-11-10 11:37] LABS: Absolute Neutrophil Ct (ANC) 4.25 (1.4-6.9); BASOPHIL % 0.9 % (0.0-0.4); Basophil (Absolute #) 0.06 (0-0.4); Eosinophil % 0.2 % (0.00-5.0); Eosinophil (Absolute #) 0.01 (0-0.5); Hematocrit 41.5 % (35-47); Hemoglobin 13.7 gm/dl (12.0-16.0); Lymphocyte (Absolute #) 1.47 (1.0-4.6); Lymphocytes % 22.7 % (24.0-44.0); Mean Corpuscular Hemoglobin 31.4 pg (26-32); Mean Platelet Volume 10.4 fl (7.5-11.0); Monocyte (Absolute #) 0.68 (0.0-1.3); Monocytes % 10.5 % (0.0-12.0); Neutrophil % 65.7 % (36.0-66.0); Platelet Count 312 K/mm3 (150-450); Red Blood Count 4.37 M/mm3 (4.1-5.4); Red Cell Distribution Width 12.5 % (11.5-14.0); White Blood Count 6.5 K/mm3 (4.0-10.5)
[2021-11-10 11:43] LABS: Appearance SLIGHTLY CLOUDY (CLEAR); Bacteria RARE /HPF (NEGATIVE); Bilirubin NEGATIVE (NEGATIVE); Blood SMALL Ery/ul (0-5); Glucose NEGATIVE (NEGATIVE); Ketones TRACE (NEGATIVE); Leukocyte Esterase NEGATIVE (NEGATIVE); Mucus SLIGHT /HPF (NEGATIVE); Nitrite NEGATIVE (NEGATIVE); Protein,Urine Dip 30 (Negative); RBC 26-50 /HPF (0-2); Specific Gravity 1.017 (1.005-1.025); Urobilinogen 2 mg/dL (0-1)
[2021-11-10 12:09] LABS: ALBUMIN 5.3 g/dL (3.5-5.0); ALKALINE PHOSPHATASE 56 U/L (38-126); ANION GAP 14.5 MEQ/L (5-15); BLOOD UREA NITROGEN 17 mg/dL (7-17); CHLORIDE 97 mmol/L (98-107); Calcium 9.9 mg/dL (8.4-10.2); Carbon Dioxide 30 mmol/L (22-30); Creatinine 1 0.51 mg/dL (0.52-1.04); EST GLOMERULAR FILTRATION RATE > 60.0 ML/MIN; Glucose 102 mg/dL (74-106); Potassium 3.8 mmol/L (3.5-5.1); SGOT/AST 37 U/L (14-36); SGPT/ALT 33 U/L (0-35); SODIUM 137 mmol/L (137-145); Total Protein 8.5 g/dL (6.3-8.2)
[2021-11-10] MEDS ORDERED: TORAdol 30 mg Injection IM ONE (12:56)
[2021-11-10] MEDS ORDERED: TORAdol 30 mg Injection ONE (12:58)
[2021-11-10 13:05] VITALS: BP 135/98; PULSE 88
[2021-11-10 15:17] VITALS: O2SAT 99
== END 2021-11-10 13:04 | disposition home or self-care (01) ==
LOC: ED 10:19
DX: R10.2 Pelvic and perineal pain (principal); Z79.891 Long term (current) use of opiate analgesic; Z72.0 Tobacco use
CPT/HCPCS: 36415; 80053; 81001; 81025; 85025; 87086; 96372; 99284; J1885